=== PATIENT | female | born 1995 | race Caucasian/White ===

== ENCOUNTER 2020-03-29 15:51 | Outpatient (REF) | payer OTHER, SELFPAY ==
[2020-03-29 16:33] LABS: MANUAL DIFF FLAG NO
[2020-03-29 16:49] LABS: Basophils Percent Auto 0.5 % (0-2); Eosinophils Absolute Auto 0.1 X10*3/uL (0.0-0.4); Eosinophils Percent Auto 2.2 % (0-4); Hematocrit 38.1 % (37-47); Hemoglobin 12.9 g/dl (12.0-16.0); Imm Gran Abs Auto 0.01 X10*3/uL (0.00-0.03); Imm Gran Pct Auto 0.2 % (0.0-0.4); Lymphocytes Absolute Auto 2.3 X10*3/uL (1.2-4.9); Lymphocytes Percent Auto 35.5 % (20-40); Mean Corpuscular HGB Conc 33.9 g/dl (31.0-35.0); Mean Corpuscular Hemoglobin 31.9 pg (27.0-33.0); Mean Corpuscular Volume 94.1 fL (80-98); Mean Platelet Volume 9.1 fL (9.4-12.3); Monocytes Absolute Auto 0.8 X10*3/uL (0.1-1.2); Monocytes Percent Auto 12.7 % (2-11); Neutrophils Absolute Auto 3.2 X10*3/uL (2.0-8.3); Neutrophils Percent Auto 48.9 % (45-73); Platelet Count 245 X10*3/uL (160-400); Red Blood Count 4.05 X10*6/uL (4.20-5.50); Red Cell Distribution Width 12.3 % (11.0-16.0); White Blood Count 6.5 X10*3/uL (4.8-10.8)
[2020-03-29 17:05] LABS: Anion Gap 12 (12-20); Blood Urea Nitrogen 10 mg/dL (9-16); Calcium 8.7 mg/dL (8.4-10.2); Carbon Dioxide 25 mmol/L (22-29); Chloride 103 mmol/L (96-108); Estimated Glomerular Filt Rate > 60; Glucose Random 75 mg/dL (60-115); Sodium 136 mmol/L (135-145)
[2020-03-29 17:28] LABS: Ferritin 32 ng/mL (10-122)
[2020-03-30 21:21] LABS: Follicle Stimulating Hormone 5.2 mIU/mL; Prolactin 16.5 ng/mL
[2020-04-01 21:32] LABS: Vitamin B12 255 pg/mL (200-900)
[2020-04-03 00:16] LABS: DHEA, Unconjugated 852 ng/dL
[2020-04-04 10:02] LABS: Testosterone, Free 2.3 pg/mL (0.1-6.4); Testosterone, Total 53 ng/dL (2-45)
== END 2020-03-29 15:52 | disposition home or self-care (01) ==
LOC: HO.LAB 15:51
PROVIDERS: PCP Internal Medicine; Visit Provider Advanced Practice Midwife
DX: L68.0 Hirsutism (principal)
CPT/HCPCS: 36415; 80048; 82607; 82626; 82728; 83001; 83498; 84146; 84402; 84403; 85025

== ENCOUNTER → 2020-04-09 11:36 | Outpatient (BNVA) | payer OTHER, SELFPAY | PROVIDERS: PCP Internal Medicine; Visit Provider Advanced Practice Midwife | DX: Z76.89 Persons encountering health services in other specified circumstances (principal) ==

== ENCOUNTER 2020-05-07 11:28 | Outpatient (REF) | payer OTHER, SELFPAY | END 2020-05-07 11:29 | disposition home or self-care (01) | LOC: HO.LAB 11:28 | PROVIDERS: Visit Provider Internal Medicine | DX: Z20.828 Contact with and (suspected) exposure to other viral communicable diseases (principal) | CPT/HCPCS: C9803; U0003 ==

== ENCOUNTER 2020-05-14 13:08 | Outpatient (REF) | payer OTHER, SELFPAY | END 2020-05-14 13:09 | disposition home or self-care (01) | LOC: HO.LAB 13:08 | PROVIDERS: PCP Internal Medicine; Visit Provider Internal Medicine | DX: Z20.828 Contact with and (suspected) exposure to other viral communicable diseases (principal) | CPT/HCPCS: C9803; U0003 ==

== ENCOUNTER → 2020-09-17 15:31 | Outpatient (BNVA) | payer OTHER, SELFPAY | PROVIDERS: Visit Provider Advanced Practice Midwife ==

== ENCOUNTER 2021-05-23 12:57 | Outpatient (REF) | payer SELFPAY | END 2021-05-23 12:58 | disposition home or self-care (01) | LOC: HO.LAB 12:57 | PROVIDERS: PCP Internal Medicine; Visit Provider Advanced Practice Midwife | DX: Z30.41 Encounter for surveillance of contraceptive pills (principal); N90.89 Other specified noninflammatory disorders of vulva and perineum | CPT/HCPCS: 88142 ==

== ENCOUNTER 2023-06-01 15:26 | Outpatient (AMB) | payer OTHER, SELFPAY ==
[2023-06-01 15:28] VITALS: BP 126/78; BMI 31.9
--- NOTE | 2023-06-01 15:28 | A.OFFVIS_ITS ---
Intake Vital Signs 06/01/23 15:28 Height 5 ft 1 in Weight 169 lb BMI 31.9 BP 126/78 Intake Visit Reasons: Anual Intake Note: hasn't had her menses since stopping controla year ago and recently got her period Pharmacy Coordinator Required: No Information Interpreted: non-clinical & clinical Airframe And Power Plant Mechanic: Airframe And Power Plant Mechanic Present (Manjulayn) Allergies No Known Allergies Allergy (Verified 06/01/23 15:33) Is last menstrual period known: Yes Last menstrual period: 04/29/23 Post menopausal: No HPI HPI Comments History of Present Illness Details She is a premenopausal woman presenting for annual examination. Doing well with concern: She stop taking the a pre because her health insurance did not cover it. She works at [employer]. While off the pill she has only had 2 cycles this year and one most recently. History of PCOS. She tries to eat healthy and stays active with exercise. Currently is not sexually active. She denies vaginal itching and irritation. STI screening offered; she declines a needs as she has not been intimate Denies family history of breast, ovarian or colon cancer. Last pap smear 2020, negative. She denies any contraindications to control such as: migraines with aura, history of DVT or pulmonary emboli, high blood pressure, liver disease, thrombolic disorders, Lupus, +ANY, breast cancer, or smoking. 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 Sexual orientation: Straight/Heterosexual Female Reproductive History Menstrual Age of Menarche: 14 Duration of menses: <3 days Date of last menstrual period: 04/29/23 control method: none Total pregnancies: 0 Date of last pap smear: 05/26/21 (negative) History of abnormal pap smear: No Review of Systems Const All systems reviewed & are unremarkable except as noted in HPI and below Reports as per HPI Eyes Reports no additional complaints ENT Reports no additional complaints Card Reports no additional complaints Resp Reports no additional complaints GI Reports as per HPI and Reports no additional complaints Reports as per HPI Musc Reports no additional complaints Skin/Breast Reports as per HPI Neuro Reports no additional complaints Psych Reports no additional complaints Endo Reports no additional complaints Steven/Lymph Reports no additional complaints Aller/Immun Reports no additional complaints Physical Exam Vital Signs: Last Vital Signs BP 126/78 06/01/23 15:28 BMI result Body Mass Index 31.9 Const General: cooperative, healthy appearing, no acute distress, well developed and alert Orientation/consciousness: patient oriented x3 HEENT Head: Yes normal to inspection Eyes General: appearance normal, both eyes and all related structures Neck Neck: Yes normal visual inspection Thyroid: Thyroid normal Chest Chest palpation & inspection: normal inspection of the chest and other (no puckering, dimpling, peau de orange, retraction, discharge, masses) Breast/axilla inspection: normal inspection of the breasts Breast/axilla palpation: normal palpation of the breasts Resp Effort & Inspection: normal respiratory effort GI Inspection: Yes normal to inspection Palpation (GI): Soft to palpation Rectal Exam - Female: deferred General: Yes bladder normal to palpation External Female Exam: normal external appearance and normal appearance of the urethra Speculum Exam - Vagina: normal appearance of the vagina, normal palpation and normal vaginal discharge Speculum Exam - Cervix: normal appearance of the cervix and normal palpation Bimanual exam- vagina & uterus: normal bimanual exam, normal palpation, uterine size normal, bladder normal to palpation, normal palpation and non-tender Bimanual Exam- Adnexa, other: no masses Skin General skin exam: no rashes or lesions noted Rashes: no rashes Neuro General: patient oriented x3 Cognition (Neuro): normal cognition Extrem General: Yes normal to inspection Psych Attitude: cooperative Thought process: Normal thought process present Assessment & Plan Assessment & Plan (1) Encounter for well woman exam with routine gynecological exam: Code(s): Z01.419 - Encounter for gynecological examination (general) (routine) without abnormal findings (2) PCOS (polycystic ovarian syndrome): Code(s): E28.2 - Polycystic ovarian syndrome Plan Discussed: Current recommendations for pap smears per ASCCP guidelines. Breast awareness and periodic breast exams. Maintain a healthy lifestyle including a well balanced diet and routine exercise. Discussed PCOS. An importance to cycle at least every other month in the prevention of long-term concerns with hyperplasia atypia, pre malignancy, uterine cancer. Advised to discuss with her health insurance plan as to what is covered in get me a list so we can start her back on OCP use or intermittent progesterone if she desires. Informed it is not a protection for control once she becomes sexually active. control hormone use warnings: go to ER if and loss of vision, blindness, severe headache, chest pain or difficulty breathing, severe abdominal pain, or any pain or swelling in an extremity. Use condoms for STI and prevention. All of her questions and concerns were addressed to the best of my ability. RTO in one year for annual pattern chain builder examination. Coding Level of Care Code Est Pt Prev Care 18-39y(43479) Diagnoses Encounter for well woman exam with routine gynecological exam Z01.419 PCOS (polycystic ovarian syndrome) E28.2
== END 2023-06-01 16:33 ==
LOC: HO.HWS 15:26
PROVIDERS: PCP Nurse Practitioner; Visit Provider Advanced Practice Midwife
DX: Z01.419 Encounter for gynecological examination (general) (routine) without abnormal findings (principal); E28.2 Polycystic ovarian syndrome
CPT/HCPCS: 99395

== ENCOUNTER → 2023-06-01 15:26 | Outpatient (BNVA) | payer OTHER, SELFPAY | PROVIDERS: PCP Nurse Practitioner; Visit Provider Advanced Practice Midwife ==

== ENCOUNTER 2025-05-02 12:59 | Outpatient (AMB) | payer BC, SELFPAY ==
--- NOTE | 2025-05-02 13:02 | A.OFFVIS_ITS ---
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 Intake Note: here for mat packer annual no concerns Residential Youth Counselor Required: No Information Interpreted: non-clinical & clinical Dish Technician: Dish Technician Present (Clarisa) Accompanied by: Self / Same As Patient Allergies No Known Allergies Allergy (Verified 05/02/25 13:05) Medication List - Last Reconciled 05/02/25 by Felecia Maher LPN fluoxetine 40 mg PO DAILY lorazepam 0.5 mg PO DAILY PRN topiramate 25 mg PO DAILY Is last menstrual period known: Yes Last menstrual period: 04/30/25 Do you need a note to return to daycare/school/sports/work: No HPI Comments Details: Patient is a premenopausal woman presenting for annual examination. Loan Coordinator concerns: None. History of PCOS. Menses [id number] x4-5d. Currently is not sexually active. She denies vaginal itching or irritation. STI screening offered; she declined. She tries to eat healthy and stays active with exercise. Denies family history of breast, ovarian or colon cancer. Last pap smear 2020, negative. 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 Sexual orientation: Straight/Heterosexual Female Reproductive History Menstrual Age of Menarche: 14 Date of last menstrual period: 04/30/25 control method: condoms Total pregnancies: 0 Number of Living Children: 0 Date of last pap smear: 05/23/21 History of abnormal pap smear: No Review of Systems Const All systems reviewed & are unremarkable except as noted in HPI and below Reports as per HPI Eyes Reports no additional complaints ENT Reports no additional complaints Card Reports no additional complaints Resp Reports no additional complaints GI Reports as per HPI and Reports no additional complaints Reports as per HPI Musc Reports no additional complaints Skin/Breast Reports as per HPI Neuro Reports no additional complaints Psych Reports no additional complaints Endo Reports no additional complaints Steven/Lymph Reports no additional complaints Aller/Immun Reports no additional complaints Physical Exam Vital Signs: Last Vital Signs BP 100/66 05/02/25 13:10 BMI result Body Mass Index 33.1 Const General: cooperative, healthy appearing, no acute distress, well developed and alert Orientation/consciousness: patient oriented x3 HEENT Head: Yes normal to inspection Eyes General: appearance normal, both eyes and all related structures Neck Neck: Yes normal visual inspection Thyroid: Thyroid normal Chest Chest palpation & inspection: normal inspection of the chest and other (no puckering, dimpling, peau de orange, retraction, discharge, masses) Breast/axilla inspection: normal inspection of the breasts Breast/axilla palpation: normal palpation of the breasts Resp Effort & Inspection: normal respiratory effort GI Inspection: Yes normal to inspection Palpation (GI): Soft to palpation Rectal Exam - Female: deferred General: Yes bladder normal to palpation External Female Exam: normal external appearance and normal appearance of the urethra Speculum Exam - Vagina: normal appearance of the vagina, normal palpation and n ormal vaginal discharge Speculum Exam - Cervix: normal appearance of the cervix and normal palpation Bimanual exam- vagina & uterus: normal bimanual exam, normal palpation, uterine size normal, bladder normal to palpation, normal palpation and non-tender Bimanual Exam- Adnexa, other: no masses Skin General skin exam: no rashes or lesions noted Rashes: no rashes Neuro General: patient oriented x3 Cognition (Neuro): normal cognition Extrem General: Yes normal to inspection Psych Attitude: cooperative Thought process: Normal thought process present Assessment & Plan Assessment & Plan (1) Encounter for well woman exam with routine gynecological exam: Code(s): Z01.419 - Encounter for gynecological examination (general) (routine) without abnormal findings Category: Medical Plan Discussed: Current recommendations for pap smears per ASCCP guidelines. Pap obtained today. Breast awareness and periodic breast exams. Reviewed cycle pattern, advised to notify the office if cycles space out any further than 2-1/2-3 months. We will need to consider using some cyclic medication unless needs contraception for prevention. Maintain a healthy lifestyle including a well balanced diet and routine exercise. Use condoms for STI and prevention. Patient verbalizes understanding and agrees to the plan of care. She was given opportunity to ask questions and all questions were answered to the best of my ability. RTO in one year for annual mat packer examination. This note is constructed using voice recognition software. While every effort has been made to ensure accuracy, welfare interviewer errors may have been included. Orders: Orders Pap Smear Today Z01.419 - Encounter for gynecological examination (general) (routine) without abnormal findings Coding Level of Care Code Est Pt Prev Care 18-39y(15910) Diagnoses Encounter for well woman exam with routine gynecological exam Z01.419
[2025-05-02 13:10] VITALS: BP 100/66; BMI 33.1
--- OUTSIDE RECORDS SUMMARY | 2025-05-02 15:39 | XMS_ITS | Clinical Summary ---
Author Organization [facility] Address [address] [place] [id number] Care Team Providers Care Manager Heart Failure Name Role Phone Pcp, No Primary Care Provider Unavailabl e Social History Tobacco Use Types Packs/Day Years Used Date Smoking Tobacco: Never Assessed Comments Unknown Sex and Gender Information Value Date Recorded Sex Assigned at Female 08/04/2023 12:42 PM EST Legal Sex Female 4:40 PM EST Gender Identity Female 08/04/2023 12:42 PM EST Sexual Orientation Not on file Plan of Treatment Health Maintenance Due Date Last Done Comments Hepatitis C Virus Screening 1994 HIV Screening 12/09/2007 DTaP/Tdap/Td Vaccines (1 - Tdap) 2013 Hepatitis B Vaccines (1 of 3 - 19+ 3-dose series) 2013 Pap Smear (Ages 21-65) 12/09/2015 Influenza Vaccine 01/19/2025 03/21/2022, 04/04/2021, 03/28/2019 COVID-19 Vaccine ( - 2024-2 6 season) 2025 04/04/2021, 07/02/2020, 06/11/2020 HPV Vaccines (No Doses Required) Completed Pneumococcal Vaccine: Pediatric (0-5 Years) and At-Risk Patients (6 to 49 Years) Aged Out No longer eligible b ased on patient's age to complete this topic Insurance [employer] HMO/POS [facility] - EMPLOYEE PLAN POWERED BY [employer] Care Teams Manager Heart Failure Relationship Specialty Start Date End Date Pcp, No PCP - General General Medicine 07/30/23
--- OUTSIDE RECORDS SUMMARY | 2025-05-02 15:39 | XMS_ITS | Clinical Summary ---
Author Organization [facility] Address [address] [place] [address] Care Team Providers Care Enamel Applier Name Role Phone None, Provider LAWN MOWER OPERATOR Primary Care Provider Unavaila ble Allergies No known active allergies Medications albuterol 90 mcg/actuation inhaler Inhale 1-2 Puffs as directed every 4 hours as needed for Wheezing. 1 Inhaler 05/11/2017 Active benzonatate (TESSALON) 100 mg capsule Take 1 Cap by mouth 3 times daily as needed for Cough. 30 Cap 05/11/2017 Active Social History Tobacco Use Types Packs/Day Years Used Date Smoking Tobacco: Never Smokeless Tobacco: Never Alcohol Use Standard Drinks/Week Comments No 0 (1 standard drink = 0.6 oz pur e alcohol) Interpersonal Safety Answer Date Record ed Physically Hurt Never 01/22/2020 Verbally Threaten Not on file 01/22/2020 Comments Unknown Sex and Gender Information Value Date Recorded Sex Assigned at Not on file Legal Sex Female 17:15 EST Gender Identity Not on file Sexual Orientation Not on file Last Filed Vital Signs Vital Sign Reading Time Taken Comments Blood Pressure 138/86 05/11/2017 0802 EST Pulse 79 05/11/2017 0802 EST Temperature 36.7 C (98 F) 05/11/2017 0808 EST Respiratory Rate 16 05/11/2017 0802 EST Oxygen Saturation 99% 05/11/2017 0802 EST Inhaled Oxygen Concentration - - Weight - - Height - - Body Mass Index - - Plan of Treatment Health Maintenance Due Date Last Done Comments Hepatitis C Screen 1994 Hepatitis B Vaccine (1 of 3 - 19+ 3-dose series) 12/08 COVID-19 Vaccine (2023- season) 2024 Care Teams Enamel Applier Relationship Specialty Start Date End Date None, Provider, LAWN MOWER OPERATOR PCP - General 04/02/17
--- OUTSIDE RECORDS SUMMARY | 2025-05-02 15:40 | XMS_ITS | Data Portability ---
Author Organization [facility], Main Office Address [address] [place] [address] Care Team Providers Care Seasonal Package Handler Name Role Phone PATRICIA BATRES Child Nurse NATALIA WILKERSON Referring Provider [phone] DEBORA ALEJANDRE Primary Care Provider Assessment Encounter Date Assessment Date Assessment LastModified by Organization Details LastModified Time 12/27/2023 12/27/2023 This service was provided using telemedicine. Patient consented to video & audio visit Patient was located in the [facility]. Provider was located in the office. No other persons participated in the telemedicine visit except for the patient unless otherwise indicated here. Total time of visit was 10 minutes. Not available 12/27/2023 11:00:43 02/01/2024 02/01/2024 This service was provided using telemedicine. Patient consented to video & audio visit Patient was located in the [facility]. Provider was located in the office. No other persons participated in the telemedicine visit except for the patient unless otherwise indicated here. Total time of visit was 10 minutes. Not available 02/01/2024 14:39:45 Plan of Treatment Reminders Order Date Submit Date Provider Last Modified By Organization Details Last Modified Time Details Appointments None recorded. Lab lipid panel, serum 2024 025 [facility], [address] [place], [address], 22:05:39 BMP, serum or plasma 2024 025 [facility], [address], [place], [address], 5 22:05:38 CBC w/ auto diff 2024 025 [facility], [address], [place], [address], 5 22:05:38 TSH, ultra-sens itive, serum 2024 025 [facility], [address], [place], [address], 5 22:05:40 vitamin D, 25-hydroxy , total, serum 2024 025 [facility], [address] [place], [address], 5 22:05:39 vitamin B12, serum 2024 025 [facility], [address] [place], [address], 5 22:05:41 lipid panel, serum 2023 024 [email or web address], [address], [place], [address], 4 10:57:21 BMP, serum or plasma 2023 024 [facility], [address], [place], [address], 4 09:57:21 CBC w/ auto diff 2023 024 [facility], [address], [place], [address], 4 09:57:22 TSH, ultra-sens itive, serum 2023 024 [email or web address], [address], [place], [address], 4 10:57:21 vitamin D, 25-hydroxy , total, serum 2023 024 [facility] (Centralized Electronic Ordering - All Locations), Patient Can Go To The Location Of Their Choice, [address] 4 09:57:22 HbA1c (hemoglobi n A1c), blood 2023 024 [facility] (Centralized Electronic Ordering - All Locations), Patient Can Go To The Location Of Their Choice, [address] 4 09:57:23 vitamin B12, serum 2023 024 [facility] (Centralized Electronic Ordering - All Locations), Patient Can Go To The Location Of Their Choice, [address] 4 09:57:22 ferritin, serum or plasma 2022 023 [facility], [address], [address], [place], [address], 3 04:56:16 iron + total iron-dontrell ng capacity (TIBC), serum 2022 023 [facility], [address], [address], [place], [address], 3 16:50:34 CBC w/ auto diff 2022 023 [facility], [address], [address], [place], [address], 3 16:11:53 vitamin B12 + folate, serum or blood 2022 023 [facility], [address], [address], [place], [address], 3 16:50:34 vitamin D, 25-hydroxy , total, serum 2022 023 [email or web address], [address], [address], [place], [address], 3 04:39:56 HbA1c (hemoglobi n A1c), blood 2022 023 [facility], [address], [address], [place], [address], 3 17:00:38 TSH + free T4, serum 2022 023 [facility], [address], [address], [place], [address], 3 17:00:38 Referral None recorded. Procedures None recorded. Surgeries None recorded. Imaging None recorded. Medication Orders Ubrelvy 50 mg tablet 2023 025 [facility]/Pharmacy #[id number], [address] [place] [address], [address], 5 15:06:19 sumatripta n 25 mg tablet 2023 024 [facility]armacy #0969, [address] [place], [address], 4 14:04:39 topiramate 50 mg tablet [email or web address]/Pharmacy #0969, [address] [place], [address], 4 16:10:21 topiramate 25 mg tablet [email or web address]/Pharmacy #0969, [address] [place], [address], 4 16:11:04 Patient TargetsNo targets recorded. Patient Instructions Encounter Date Encounter Id Patient Instructions Last Modified By Organization Details Last Modified Time 11/25/2023 [id number] learning about anxiety disorders Not available 11/25/2023 09:57:10 Well Visit, Ages 18 to 65: Care Instructions Not available 11/25/2023 09:57:10 learning about mood disorders Not available 11/25/2023 09:57:10 01/30/2025 [id number] learning about anxiety disorders Not available 01/30/2025 15:21:22 learning about mood disorders Not available 01/30/2025 15:21:22 Reason for Referral None Reported. Results Created Date Observation Date Name Description Value Unit Range Abnormal Flag Note LastModifiedBy Organization Detail LastModifiedTime 06/30/19 23 06/30/2022 CBC WITH AUTO DIFF comments [facility], [facility] [address] [facility] [place] [address] Medic al Direc tor - Allis on Sera benítez MD Not Available [facility] [address] [place], [address], 06/30/2022 16:11:53 06/30/1906/30/2022 CBC WITH AUTO DIFF WBC 7.1 x10-3 /uL 4.8-10 .8 Not Available [facility] [address] [place], [address], 06/30/2022 16:11:53 06/30/19 23 06/30/2022 CBC WITH AUTO DIFF RBC 4.4 x10-6 /uL 3.8-4. 8 Not Available [facility] [address] [place], [address], 06/30/2022 16:11:53 06/30/19 23 06/30/2022 CBC WITH AUTO DIFF hemoglobin 13.7 g/dL 11.5-1 6.0 Not Available [facility] [address] [place], [address], 06/30/2022 16:11:53 06/30/19 23 06/30/2022 CBC WITH AUTO DIFF hematocrit 40.8 % 35-47 Not Available [facility] [address] [place], [address], 06/30/2022 16:11:53 06/30/19 23 06/30/2022 CBC WITH AUTO DIFF MCV 92.5 fL 79-98 Not Available [facility] [address] [place], [address], 06/30/2022 16:11:53 06/30/19 23 06/30/2022 CBC WITH AUTO DIFF MCH 31.1 pg 27-32 Not Available [facility] [address] [place], [address], 06/30/2022 16:11:53 06/30/19 23 06/30/2022 CBC WITH AUTO DIFF MCHC 33.6 g/dL 32-37 Not Available [facility] [address] [place], [address], 06/30/2022 16:11:53 06/30/19 23 06/30/2022 CBC WITH AUTO DIFF RDW 12.6 % 11-15 Not Available [facility] [address] [place], [address], 06/30/2022 16:11:53 06/30/19 23 06/30/2022 CBC WITH AUTO DIFF plt count 274 x10-3 /uL 130-40 0 Not Available [facility] [address] [place], [address], 06/30/2022 16:11:53 06/30/19 23 06/30/2022 CBC WITH AUTO DIFF mean platelet volume 9.2 fL 7-11 Not Available [facility] [address] [place], [address], 06/30/2022 16:11:53 06/30/19 23 06/30/2022 CBC WITH AUTO DIFF NRBC % auto diff 0.0 % <1 Not Available [facility] [address] [place], [address], 06/30/2022 16:11:53 06/30/19 23 06/30/2022 CBC WITH AUTO DIFF neut % 54.7 % Not Available [facility] [address] [place], [address], 06/30/2022 16:11:53 06/30/19 23 06/30/2022 CBC WITH AUTO DIFF lymph % 33.1 % Not Available [facility] [address] [place], [address], 06/30/2022 16:11:53 06/30/19 23 06/30/2022 CBC WITH AUTO DIFF mono % 9.3 % Not Available [facility] [address] [place], [address], 06/30/2022 16:11:53 06/30/19 23 06/30/2022 CBC WITH AUTO DIFF eos % 2.0 % Not Available [facility] [address] [place], [address], 06/30/2022 16:11:53 06/30/19 23 06/30/2022 CBC WITH AUTO DIFF baso % 0.6 % Not Available [facility] [address] [place], [address], 06/30/2022 16:11:53 06/30/19 23 06/30/2022 CBC WITH AUTO DIFF immature granulocytes % 0.3 % Not Available [facility] [address] [place], [address], 06/30/2022 16:11:53 06/30/19 23 06/30/2022 CBC WITH AUTO DIFF NRBC # auto diff 0.00 x10-3 /uL <0.1 Not Available [facility] [address] [place], [address], 06/30/2022 16:11:53 06/30/19 23 06/30/2022 CBC WITH AUTO DIFF absolute neut 3.90 x10-3 /uL 1.5-7. 0 Not Available [facility] [address] [place], [address], 06/30/2022 16:11:53 06/30/19 23 06/30/2022 CBC WITH AUTO DIFF lymph # 2.35 x10-3 /uL 1-5.0 Not Available [facility] [address] [place], [address], 06/30/2022 16:11:53 06/30/19 23 06/30/2022 CBC WITH AUTO DIFF mono # 0.66 x10-3 /uL 0.2-1. 0 Not Available [facility] [address] [place], [address], 06/30/2022 16:11:53 06/30/19 23 06/30/2022 CBC WITH AUTO DIFF eos # 0.14 x10-3 /uL 0-0.5 Not Available [facility] [address] [place], [address], 06/30/2022 16:11:53 06/30/19 23 06/30/2022 CBC WITH AUTO DIFF baso # 0.04 x10-3 /uL 0-0.2 Not Available [facility] [address] [place], [address], 06/30/2022 16:11:53 06/30/19 23 06/30/2022 CBC WITH AUTO DIFF immature granulocytes # 0.02 x10-3 /uL 0-0.03 Not Available [facility] [address] [place] [address], [address], 06/30/2022 16:11:53 06/30/19 23 06/30/2022 GLYCO HEMOG LOBIN PROFI LE comments [facility] monique bennett, [facility] [address] [place] [address] Medic al Dire tor - Allis on Sera benítez MD Not Available [facility] [address] [place] [address], [address], 06/30/2022 20:55:54 06/30/19 23 06/30/2022 GLYCO HEMOG LOBIN PROFI LE glycated hemoglobin A1C 5.3 % <6.5 Not Available [facility] [address] [place], [address], 06/30/2022 20:55:54 06/30/19 23 06/30/2022 GLYCO HEMOG LOBIN PROFI LE estimated average glucose 105 mg/dL Not Available [facility] [address] [place], [address], 06/30/2022 20:55:54 06/30/19 23 06/30/2022 TOTAL IRON DONTRELL NG CAPAC ITY comments [facility], [facility] [place] [facility] [address] [place] [address] Medic al Direc tor - Allis on Sera benítez MD Not Available [facility] [address] [place] [address], [address], 07/01/2022 04:32:22 06/30/19 23 06/30/2022 TOTAL IRON DONTRELL NG CAPAC ITY total iron binding capacity 422 ug/dL 250-45 0 Not Available [facility] [address] [place] [address], [address], 07/01/2022 04:32:22 06/30/19 23 06/30/2022 TOTAL IRON DONTRELL NG CAPAC ITY iron (fe) 85 ug/dL 40-150 Not Available [facility] [address] [place] [address], [address], 07/01/2022 04:32:22 06/30/19 23 06/30/2022 TOTAL IRON DONTRELL NG CAPAC ITY % fe saturation 20 % 15-50 Not Available [facility] [address] [place] [address], [address], 07/01/2022 04:32:22 06/30/19 23 06/30/2022 VITAM IN D, 25-HY DROXY comments [facility] erin padgett [facility] of [facility] [address] [place] [address] Medic al Direc tor - Allis on Sera benítez MD Not Available [facility] [address] [place] [address], [address], 07/01/2022 04:39:56 06/30/19 23 06/30/2022 VITAM IN D, 25-HY DROXY vitamin D, 25-hydroxy 31 NG/mL 30-80 Not Available [facility] [address] [place] [address], [address], 07/01/2022 04:39:56 06/30/19 23 06/30/2022 FREE T4 comments [facility] erin padgett [facility] of [facility] [address] [place] [address] Medic al Direc tor - Allis on Sera benítez MD Not Available [facility] [address] [place] [address], [address], 07/01/2022 04:39:58 06/30/19 23 06/30/2022 FREE T4 free T4 1.02 NG/dL 0.70-1 .80 Not Available [facility] [address] [place] [address], [address], 07/01/2022 04:39:58 06/30/19 23 06/30/2022 TSH comments [facility] atorrobby bennett, a [facility] [address] [place] [address] Medic al Dire tor - Allis on Sera benítez MD Not Available [facility] [address] [place] [address], [address], 07/01/2022 04:39:59 06/30/19 23 06/30/2022 TSH TSH 1.25 uIU/m L 0.40-4 .00 Not Available [facility] [address] [place] [address], [address], 07/01/2022 04:39:59 06/30/19 23 06/30/2022 FOLAT E comments [facility] mon[facility], a [facility] Of [address] [place] [address] Medic al Direc tor - Allis on Sera benítez MD Not Available [facility] [address] [place] [address], [address], 07/01/2022 04:56:14 06/30/19 23 06/30/2022 FOLAT E folate 12.0 NG/mL 2.8-17 .0 Not Available [facility] [address] [place] [address], [address], 07/01/2022 04:56:14 06/30/19 23 06/30/2022 VITAM IN B12 comments [facility] monique bennett, a [facility] [address] [facility] [place] [address] Medic al Direc tor - Allis on Sera benítez MD Not Available [facility] [address] [place], [address], 07/01/2022 04:56:15 06/30/19 23 06/30/2022 VITAM IN B12 vitamin B12 627 pg/mL 250-90 0 Not Available [facility] [address] [place], [address], 07/01/2022 04:56:15 06/30/19 23 06/30/2022 MASSIEL TIN comments [facility] rein padgett [facility] [address] [facility]. [place], [place] [address] Medic al Direc tor - Allis on Sera benítez MD Not Available [facility] [address] [place] [address], [address], 07/01/2022 04:56:16 06/30/19 23 06/30/2022 MASSIEL TIN ferritin 15 NG/mL 8-252 Not Available [facility] [address] [place], [address], 07/01/2022 04:56:16 02/08/20 25 02/07/2025 CBC WITH DIFFE RENTI AL/PL ATELE T WBC 9.2 x10e3 /uL 3.4-10 .8 normal Not Available [facility] ([facility]) [address] [place], [address], 02/09/2025 22:05:38 02/08/20 25 02/07/2025 CBC WITH DIFFE RENTI AL/PL ATELE T RBC 4.24 x10e6 /uL 3.77-5 .28 normal Not Available [facility] ([facility]) [address] [place], [address], 02/09/2025 22:05:38 02/08/20 25 02/07/2025 CBC WITH DIFFE RENTI AL/PL ATELE T hemoglobin 13.7 g/dL 11.1-1 5.9 normal Not Available [facility] ([facility]) [address] [place], [address], 02/09/2025 22:05:38 02/08/20 25 02/07/2025 CBC WITH DIFFE RENTI AL/PL ATELE T hematocrit 40.8 % 34.0-4 6.6 normal Not Available [facility] ([facility]) [address] [place], [address], 02/09/2025 22:05:38 02/08/20 25 02/07/2025 CBC WITH DIFFE RENTI AL/PL ATELE T MCV 96 fL 79-97 normal Not Available [facility] ([facility]) [address] [place], [address], 02/09/2025 22:05:38 02/08/20 25 02/07/2025 CBC WITH DIFFE RENTI AL/PL ATELE T MCH 32.3 pg 26.6-3 3.0 normal Not Available [facility] ([facility]) [address] [place], [address], 02/09/2025 22:05:38 02/08/20 25 02/07/2025 CBC WITH DIFFE RENTI AL/PL ATELE T MCHC 33.6 g/dL 31.5-3 5.7 normal Not Available [facility] ([facility]) [address] [place], [address], 02/09/2025 22:05:38 02/08/20 25 02/07/2025 CBC WITH DIFFE RENTI AL/PL ATELE T RDW 12.9 % 11.7-1 5.4 Not Available [facility] ([facility]) [address] [place], [address], 02/09/2025 22:05:38 02/08/20 25 02/07/2025 CBC WITH DIFFE RENTI AL/PL ATELE T platelets 249 x10e3 /uL 150-45 0 normal Not Available [facility] ([facility]) [address] [facility], [place], [address], 02/09/2025 22:05:38 02/08/20 25 02/07/2025 CBC WITH DIFFE RENTI AL/PL ATELE T neutrophils 62 % not estab. normal Not Available [facility] ([facility]) [address] [facility], [place], [address], 02/09/2025 22:05:38 02/08/20 25 02/07/2025 CBC WITH DIFFE RENTI AL/PL ATELE T lymphs 27 % not estab. normal Not Available [facility] ([facility]) [address] [facility], [place], [address], 02/09/2025 22:05:38 02/08/20 25 02/07/2025 CBC WITH DIFFE RENTI AL/PL ATELE T monocytes 9 % not estab. normal Not Available [facility] ([facility]) [address] [facility], [place], [address], 02/09/2025 22:05:38 02/08/20 25 02/07/2025 CBC WITH DIFFE RENTI AL/PL ATELE T eos 1 % not estab. normal Not Available [facility] ([facility]) [address] [facility], [place], [address], 02/09/2025 22:05:38 02/08/20 25 02/07/2025 CBC WITH DIFFE RENTI AL/PL ATELE T basos 0 % not estab. normal Not Available [facility] ([facility]) [address] [facility], [place], [address], 02/09/2025 22:05:38 02/08/20 25 02/07/2025 CBC WITH DIFFE RENTI AL/PL ATELE T immature cells BACKREST ASSEMBLER Not Available [facility] ([facility]) [address] [place], [address], 02/09/2025 22:05:38 02/08/20 25 02/07/2025 CBC WITH DIFFE RENTI AL/PL ATELE T neutrophils (absolute) 5.7 x10e3 /uL 1.4-7. 0 normal Not Available [facility] ([facility]) [address] [place], [address], 02/09/2025 22:05:38 02/08/20 25 02/07/2025 CBC WITH DIFFE RENTI AL/PL ATELE T lymphs (absolute) 2.5 x10e3 /uL 0.7-3. 1 normal Not Available [facility] ([facility]) [address] [place], [address], 02/09/2025 22:05:38 02/08/20 25 02/07/2025 CBC WITH DIFFE RENTI AL/PL ATELE T monocytes(ab solute) 0.8 x10e3 /uL 0.1-0. 9 normal Not Available [facility] ([facility]) [address] [place], [address], 02/09/2025 22:05:38 02/08/20 25 02/07/2025 CBC WITH DIFFE RENTI AL/PL ATELE T eos (absolute) 0.1 x10e3 /uL 0.0-0. 4 normal Not Available [facility] ([facility]) [address] [place], [address], 02/09/2025 22:05:38 02/08/20 25 02/07/2025 CBC WITH DIFFE RENTI AL/PL ATELE T baso (absolute) 0.0 x10e3 /uL 0.0-0. 2 normal Not Available [facility] ([facility]) [address] [place], [address], 02/09/2025 22:05:38 02/08/20 25 02/07/2025 CBC WITH DIFFE RENTI AL/PL ATELE T immature granulocytes 1 % not estab. Not Available [facility] ([facility]) [address] [facility], [place], [address], 02/09/2025 22:05:38 02/08/20 25 02/07/2025 CBC WITH DIFFE RENTI AL/PL ATELE T immature grans (abs) 0.1 x10e3 /uL 0.0-0. 1 Not Available [facility] ([facility]) [address] [facility], [place], [address], 02/09/2025 22:05:38 02/08/20 25 02/07/2025 CBC WITH DIFFE RENTI AL/PL ATELE T NRBC BACKREST ASSEMBLER Not Available [facility] ([facility]) [address] [facility], [place], [address], 02/09/2025 22:05:38 02/08/20 25 02/07/2025 CBC WITH DIFFE RENTI AL/PL ATELE T hematology comments: BACKREST ASSEMBLER Not Available [facility] ([facility]) [address] [facility], [place], [address], 02/09/2025 22:05:38 02/08/20 25 02/08/2025 BASIC METAB OLIC PANEL (8) glucose 91 mg/dL 70-99 normal Not Available [facility] ([facility]) [address] [place], [address], 02/09/2025 22:05:38 02/08/20 25 02/08/2025 BASIC METAB OLIC PANEL (8) BUN 19 mg/dL 6-20 normal Not Available [facility] ([facility]) [address] [place], [address], 02/09/2025 22:05:38 02/08/20 25 02/08/2025 BASIC METAB OLIC PANEL (8) creatinine 0.69 mg/dL 0.57-1 .00 normal Not Available [facility] ([facility]) [address] [place], [address], 02/09/2025 22:05:38 02/08/20 25 02/08/2025 BASIC METAB OLIC PANEL (8) eGFR 120 mL/mi n/1.7 3 >59 normal Not Available [facility] ([facility]) [address] [place], [address], 02/09/2025 22:05:38 02/08/20 25 02/08/2025 BASIC METAB OLIC PANEL (8) BUN/creatini ne ratio 28 9-23 above high normal Not Available [facility] ([facility]) [address] [place], [address], 02/09/2025 22:05:38 02/08/20 25 02/08/2025 BASIC METAB OLIC PANEL (8) sodium 137 mmol/ L 134-14 4 normal Not Available [facility] ([facility]) [address] [place], [address], 02/09/2025 22:05:38 02/08/20 25 02/08/2025 BASIC METAB OLIC PANEL (8) potassium 4.0 mmol/ L 3.5-5. 2 normal Not Available [facility] ([facility]) [address] [place], [address], 02/09/2025 22:05:38 02/08/20 25 02/08/2025 BASIC METAB OLIC PANEL (8) chloride 104 mmol/ L 96-106 normal Not Available [facility] ([facility]) [address] [place], [address], 02/09/2025 22:05:38 02/08/20 25 02/08/2025 BASIC METAB OLIC PANEL (8) carbon dioxide, total 16 mmol/ L 20-29 below low normal Not Available [facility] ([facility]) [address] [place], [address], 02/09/2025 22:05:38 02/08/20 25 02/08/2025 BASIC METAB OLIC PANEL (8) calcium 9.0 mg/dL 8.7-10 .2 normal Not Available [facility] ([facility]) [address] [place], [address], 02/09/2025 22:05:38 02/08/20 25 02/08/2025 LIPID PANEL cholesterol, total 167 mg/dL 100-19 9 normal Not Available [facility] ([facility]) [address] [place], [address], 02/09/2025 22:05:39 02/08/20 25 02/08/2025 LIPID PANEL triglyceride s 129 mg/dL 0-149 normal Not Available [facility] ([facility]) [address] [place], [address], 02/09/2025 22:05:39 02/08/20 25 02/08/2025 LIPID PANEL HDL cholesterol 46 mg/dL >39 normal Not Available [facility] ([facility]) [address] [place], [address], 02/09/2025 22:05:39 02/08/20 25 02/08/2025 LIPID PANEL VLDL cholesterol ashley 23 mg/dL 5-40 Not Available [facility] ([facility]) [address] [place], [address], 02/09/2025 22:05:39 02/08/20 25 02/08/2025 LIPID PANEL LDL chol calc ([facility]) 98 mg/dL 0-99 Not Available [facility] ([facility]) [address] [place], [address], 02/09/2025 22:05:39 02/08/20 25 02/08/2025 LIPID PANEL LDL calc comment: BACKREST ASSEMBLER Not Available [facility] ([facility]) [address] [place], [address], 02/09/2025 22:05:39 02/08/20 25 02/08/2025 VITAM IN D, 25-HY DROXY vitamin D, 25-hydroxy 66.2 NG/mL 30.0-1 00.0 Vitam in D defic iency has been defin ed by the Insti tute of Medic ine and an Endoc rine Socie ty pract ice guide line as a level of serum 25-OH vitam in D less than 20 ng/mL (1,2) . The Endoc rine Socie ty went on to furth er defin e vitam in D insuf ficie ncy as a level betwe en 21 and 29 ng/mL (2). 1. IOM (Inst itute of Medic ine). 2010. Dieta ry refer ence stevan es for calci um and D. Kevin sheldon [place]: The [facility] . 2. Celso hart [place], Susan haque [place], Pola off-F errar i ROBLES, et al. Evalu ation , treat ment, and preve ntion of vitam in D defic iency : an Endoc rine Socie ty clini ashley pract ice guide line. JCEM. 2010; 96(7) :1911 -30. Not Available [facility] ([facility]) [address] [place], [address], 02/09/2025 22:05:39 02/08/20 25 02/08/2025 TSH RFX ON ABNOR MAL TO FREE T4 TSH 1.580 uIU/m L 0.450- 4.500 normal Not Available [facility] ([facility]) [address] [place], [address], 02/09/2025 22:05:40 02/08/20 25 02/09/2025 VITAM IN B12 vitamin B12 304 pg/mL 232-12 45 normal Not Available [facility] ([facility]) [address] [place], [address], 02/09/2025 22:05:41 Result Notes None recorded. Problems Name Problem SNOMED Code Status Onset Date Resolution Date Notes Provider Name and Address Organization Details Recorded Time Depressive disorder 55989140 Active 2020 Not Available [facility] 3 02:38:33 Anxiety disorder 556425767 Active 2020 Not Available [facility] 3 02:38:33 Migraine 79036144 Active 2020 Not Available [facility] 3 02:38:33 Polycystic ovary syndrome 086922264 Active 2020 Not Available [facility] 3 02:38:33 Cobalamin deficiency 969171607 Active 2020 Not Available [facility] 3 02:38:33 Vitamin D deficiency 77553738 Active 2020 Not Available [facility] 3 02:38:33 Notes:Some problems listed i n Document: #[id number] could not be added to this patient's chart. Please review this document and add these problems to the patient's chart manually as needed. Problem Notes None recorded. Procedures Surgical History Date Name Laterality Status Provider Name and Address Organization Details Recorded Time 06/01/20 23 Date of Last Pap Smear completed Sofiya Cisneros MA [facility] 01/30/2025 15:08:06 06/21/19 03 Tonsillectomy completed Sofiya Cisneros MA [facility] 05/30/2021 13:11:11 Other completed Sofiya Cisneros MA [facility] 05/30/2021 13:11:11 Imaging Results None recorded. Procedure Notes None recorded. Medical Equipment None Reported. Allergies No known drug allergies Medications Name Sig Start Date Stop Date Status Note LastModified by Organization Details LastModified Time fluoxetine 40 mg capsule TAKE 1 CAPSULE BY MOUTH EVERY DAY active Not Available Not Available No t Available buspirone 5 mg tablet TAKE 1 TABLET BY MOUTH TWICE A DAY 05/05 completed Not Available Not Available Not Available Apri 0.15 mg-0.03 mg tablet TAKE 1 TABLET BY MOUTH EVERY DAY 11/24 completed Not Available Not Available Not Available sumatripta n 25 mg tablet TAKE 1 TABLET BY MOUTH EVERY DAY NEEDED 01/31 completed Not Available Not Available Not Available cyanocobal uriarte (vit B-12) 1,000 mcg tablet TAKE 1 TABLET BY MOUTH EVERY DAY 05/05 completed Not Available Not Available Not Available topiramate 25 mg tablet TAKE 1 TABLET BY MOUTH EVERY DAY FOR 30 DAYS 12/16 completed Not Available Not Available Not Available amitriptyl ine 25 mg tablet TAKE 1 TABLET BY MOUTH EVERY DAY FOR 30 DAYS 06/29 completed Not Available Not Available Not Available lorazepam 0.5 mg tablet TAKE 1 TABLET BY MOUTH EVERY DAY NEEDED active only when flying Not Available Not Available Not Available amitriptyl ine 10 mg tablet TAKE 1 TABLET BY MOUTH EVERY EVENING 11/24 completed Not Available Not Available Not Available fluoxetine 10 mg capsule TAKE 1 CAPSULE BY MOUTH EVERY DAY 05/05 completed Not Available Not Available Not Available fluoxetine 20 mg capsule Take 2 capsules every day by oral route as directed . 03/09 completed Not Available Not Available Not Available topiramate 50 mg tablet TAKE 1 TABLET BY MOUTH EVERY DAY 2024 active Not Available Not Available Not Avai lable Vitamin D3 1000 po qd 11/24 completed Not Available Not Available Not Available cholecalci ferol (vitamin D3) 1,250 mcg (50,000 unit) capsule TAKE 1 CAPSULE EVERY WEEK BY ORAL ROUTE FOR 56 DAYS. 06/29 completed Not Available Not Available Not Available melatonin 10 mg tablet Take 1 tablet every day by oral route as directed . 03/09 completed Not Available Not Available Not Available Vandana (28) 3 mg-0.02 mg tablet TAKE 1 TABLET BY MOUTH EVERY DAY 05/05 completed Not Available Not Available Not Available Vitamin B12 1 po qd 11/24 completed Not Available Not Available Not Available Ubrelvy 50 mg tablet TAKE 1 TABLET BY MOUTH NEEDED FOR HEADACHE FOR 10 DAYS 01/30 completed Not Available Not Available Not Available COVID-19 At-Home Test kit 12/26 completed Not Available Not Available Not Available Vitals Date Recorded Body height Body mass index (BMI) Body weight Oxygen saturation Oxygen saturation in Arterial blood by Pulse oximetry Heart rate Body temperature Systolic And Diastolic Provider Name and Address Organization Details Last Updated DateTime 3 157.48 cm 34.8 kg/m2 63967.2 5 g 98 % 98 % 83 /min 98.3 [degF] 124/79 mm[Hg] Sofiya Cisneros MA [facility] 3 15:49:12 Date Recorded Body height Body mass index (BMI) Body weight Heart rate Oxygen saturation Oxygen saturation in Arterial blood by Pulse oximetry Body temperature Systolic And Diastolic Provider Name and Address Organization Details Last Updated DateTime 4 157.48 cm 31.8 kg/m2 83333.0 7 g 87 /min 98 % 98 % 97.9 [degF] 127/85 mm[Hg] Fawn Fields MA [facility] 4 09:36:06 Date Recorded Body height Provider Name an d Address Organization Details Last Updated DateTime 12/27/2023 157.48 cm Fawn Fields MA [facility] 12/27/2023 10:32:02 Date Recorded Body height Body mass index (BMI) Body weight Oxygen saturation Oxygen saturation in Arterial blood by Pulse oximetry Heart rate Body temperature Systolic And Diastolic Provider Name and Address Organization Details Last Updated DateTime 5 157.48 cm 32.6 kg/m2 37696.5 4 g 99 % 99 % 73 /min 98.4 [degF] 120/74 mm[Hg] Sofiya Cisneros MA [facility] 5 15:05:27 Date Recorded Body height Provider Name an d Address Organization Details Last Updated DateTime 02/01/2024 157.48 cm Sofiya Cisneros MA [facility] 02/01/2024 13:57:48 Social History Question Answer Notes LastModified by Organizat ion Details LastModified Time Tobacco Smoking Status Never Smoker ZULLY Mao [facility] 05/30/2021 13:11:07 Is Blood Transfusion Acceptable In An Emergency? Yes [email or web address] Information not available 05/30/2021 What Is Your Level Of Caffeine Consumption? Moderate [email or web address] Information not available 06/29/2022 How Much Tobacco Do You Chew? None [email or web address] Information not available 05/30/2021 What Type Of Diet Are You Following? [email or web address] Information not available 05/30/2021 Which Illicit Or Recreational Drugs Have You Used? None [email or web address] Information not available 05/30/2021 Do You Take Precautions To Prevent Distracted Driving? Yes [email or web address] Information not available 05/30/2021 How Often Do You Need To Have Someone Help You When You Read Instructions, Pamphlets, Or Other Written Material From Your Doctor Or Pharmacy? Never [email or web address] Information not available 06/29/2022 Have You Served In The ? No [email or web address] Information not available 05/30/2021 How Many Children Do You Have? 0 [email or web address] Information not available 05/30/2021 Do You Use Your Seat Belt Or Car Seat Routinely? Yes [email or web address] Information not available 05/30/2021 Are You Sexually Active? No [email or web address] Information not available 05/30/2021 Do You Have Smoke And Carbon Monoxide Detectors In Your Home? Yes [email or web address] Information not available 05/30/2021 Are You Passively Exposed To Smoke? No [email or web address] Information no t available 05/30/2021 How Much Tobacco Do You Smoke? No [email or web address] Information not available 05/30/2021 Do You Use Sunscreen Routinely? Yes [email or web address] Information not available 05/30/2021 Sex: Unknown Functional Status Question Answer Note LastModified by Organizat ion Details LastModified Time What is your level of alcohol consumption? Occasional [email or web address] Information not available 05/30/2021 Do you or have you ever used smokeless tobacco? Never used smokeless tobacco [email or web address] Information not available 05/30/2021 Are you currently employed? Yes [email or web address] Information not available 05/30/2021 Are you able to walk independently without assistance or assistive devices? YESWOREST Information not available 06/29/2022 Are you able to care for yourself independently? 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 Occasional [email or web address] Information not available 05/30/2021 Mental Status None recorded. Family History Relationship Description Onset Age of this Age Resolved Age Notes LastModified by Organization Details LastModified Time Maternal Aunt Dementia Not available 05/30/2021 13:10:48 Mother Depressive disorder [email or web address] Not available 05/30 13:10:48 Mother Attention deficit hyperactivit y disorder Not available 05/21 13:10:48 Mother Anxiety disorder [email or web address] Not available 05/30 13:10:48 Father Heart disease [email or web address] Not available 05/30 13:10:48 Father Kidney disease [email or web address] Not available 06/29 15:42:43 Maternal Grandfather Alzheimer's disease [email or web address] Not available 05/30 13:10:48 Sister Depressive disorder [email or web address] Not available 05/30 13:10:48 Sister Attention deficit hyperactivit y disorder [email or web address] Not available 02/2023 15:42:43 Sister Anxiety disorder [email or web address] Not available 06/29 15:42:43 Medical History Condition Response Anxiety Disorder Y Vision or Eye Problems Y Anemia Y Constipation Y Headaches/Migraines Y Mental Illness Y Depression Y Chicken Pox Y GI Problems Y Acne Y Gynecological History Statement/Question Response Date of Last Pap Smear 06/01/2023 Obstetrics History GPAL:G 0 P 0 0 0 0 Immunizations Vaccine Type Date Status Note Provider Nam e and Address Organization Details Recorded Time Influenza, split virus, quadrivalent, preservative 9 completed Not Available [facility] 10/01/2022 02:38:33 COVID-19, mRNA, LNP-S, PF, 30 mcg/0.3 mL dose 1 completed Not Available [facility] 10/01/2022 02:38:33 COVID-19, mRNA, LNP-S, PF, 30 mcg/0.3 mL dose 1 completed Not Available [facility] 10/01/2022 02:38:33 Tdap 9 completed Not Available [facility] 10/01/2022 02:38:33 COVID-19, mRNA, LNP-S, PF, 30 mcg/0.3 mL dose 0 completed Not Available [facility] 10/01/2022 02:38:33 Influenza, split virus, quadrivalent, preservative 1 completed Not Available [facility] 10/01/2022 02:38:33 influenza, unspecified formulation 2 completed Not Available [facility] 10/01/2022 02:38:33 Influenza, split virus, trivalent, preservative 3 completed Sofiya Cisneros MA [facility] 02/01/2024 13:57:29 Past Encounters Encounter ID Performer Location Encounter Start Date Encounter Closed Date Diagnosis/Indication Diagnosis SNOMED-CT Code Diagnosis ICD10 Code Diagnosis IMO Codes Diagnosis Note [id number] Ya villa MD Main Office [address] [facility] [address] [facility] [place] [id number] 05/30/2021 13:08:44 05/30/2021 14:20:40 Adult health examination 684224082 Z00.00 Pt is in good general health. Social and family history reviewed. Immunizati ons reviewed, advised annual flu shot. 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 Depressive disorder 3548 9007 F32.A stable on medication , followed by mental health providers Constipation 92970230 K5 9.00 Increase fluid intake to 6-8 glasses a day, increase fresh fruits and vegetables , whole grains. Increase exercise. Can try miralax 1 capuful daily if she would like, then use prn. Call if any abdominal pain, bleeding. Fatigue 23945278 R53.83 Vitamin D deficiency 347 45721 E55.9 Anemia due to unknown mechanism 46108512 D64.9 hx of anemia, will do labs Family his tory of hyperlipidemia 276462761 Z83.49 [id number] Ya villa MD Main Office [address] [facility] [address] [facility] [place] [id number] 03/09/2022 09:43:00 03/09/2022 10:29:00 Migraine 04944327 G43.909 on TCA at 10 mg, will try increase to 25 mg. Will add sumitripta n to take at time of migraine. Try magnesium, keeping hydrated, getting enough sleep. If not improved to call back. Consider another preventive agent if not helping. [id number] Ya villa MD Main Office [address] [facility] [address] [facility] [place] [id number] 06/29/2022 15:32:04 06/29/2022 16:57:52 Adult health examination 105486493 Z00.00 Pt is in good general health. Social and family history reviewed. Immunizati ons reviewed, advised annual flu shot which she has had. 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 Polycystic ovary syndrome 176911625 E28.2 Continue to work on healthy eating, exercise, change med to avoid wt gain. [id number] DEBORA ALEJANDRE MD Main Office [address] [facility] [address] [place] [address] [place] [id number] 11/25/2023 09:30:06 11/25/2023 10:02:59 Adult health examination 688681238 Z00.00 Health Maintenanc e FemaleA) Patient was counseled on healthy diet, exercise and nutrition due to BMI of 31.8 B) ScreeningL ast Mammogram: start at age 50 stop at 74Date: Result: BIRADS ???Next: not yet of age Last Pap smear: start at age 21 to age 65Date: 05/23/2021 esults: no atypical cellsNext: 3 years, 05/2024 Last Colonoscop y: start at age 45-75Date: Result: Next: not yet of age Last DEXA scan:Date: due at 65Result: not yet of age C) Vaccines:I nfluenza: refusedTdA P: 03/21/2019Z tiffanie: due at 89ODF91: due at 63AKBI09: due at 62XIB07:PC V15:COVID: 06/11/2020 , 07/02/2020, 04/04/2021 D) Routine blood work orderedE) Updated patient's history RTC in one year for annual exam or sooner if any acute complaints Anxiety disorder 6182992 06 F41.9 - GILMAR-7 score of 0- pt is currently on fluoxetine 40mg QD -> given by psychiatri st- pt will take lorazepam 0.5mg as needed- counsellin g provided Depressive disorder 1155 9007 F32.A - PHQ-9 score of 0- pt is currently on fluoxetine 40mg QD -> given by psychiatri st- denies SI/HI- counsellin g provided Migraine 16154041 G43.90 9 - feels like frequency has increased -> 2X a week currently> nausea and photophobi a- no aura- for abortive treatment pt is currently taking sumatripta n 25mg -> does not feel that it helps- will take Excedrin instead usually 2-4 capsules daily- for prevention pt is currently taking topiramate , will increase to 50mg- will monitor weight- RTC in 4 weeks Polycystic ovary syndrome 687434453 E28.2 - 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 will continue for another 4 weeks. If no improvemen t will taper off the topiramate and start on propanolol - reintroduc ed back sumatripta n as needed- c/w Excedrin as needed- weight is stable- RTC in 4 weeks [id number] DEBORA ALEJANDRE MD Main Office [address] [facility] [address] [place] [address] 02/01/2024 13:50:47 02/01/2024 15:24:57 Migraine 07992371 G43.909 - improved> pt has migraines with associated nausea and photophobi a- no aura- c/w topiramate 50mg QD as it providing relief- stopped sumatripta n as it caused AE with nausea and vomiting and did not provide relief> will try ubrelvy 50mg as needed instead to help with severe migraines when patient gets them can use as abortive therapy- c/w Excedrin as needed- weight is stable [id number] DEBORA ALEJANDRE MD Main Office [address] [facility] [address] [place] [address] 01/30/2025 14:54:51 01/30/2025 15:23:01 Migraine 92332269 G43.909 - improved> pt has migraines with associated nausea and photophobi a- no aura- c/w topiramate 50mg QD as it providing relief- stopped sumatripta n as it caused AE with nausea and vomiting and did not provide relief> patient was given ubrelvy 50mg QD for abortive treatment however has yet needed to try it- c/w Excedrin as needed- weight is stable Anxiety disorder 6626857 06 F41.9 - GILMAR-7 score of 0- pt is currently on fluoxetine 40mg QD -> given by psychiatri (sees once every 6 months)- pt will take lorazepam 0.5mg as needed (usually when flying)- counselwong rodriguez provided Depressive disorder 8458 9007 F32.A - PHQ-9 score of 0- pt is currently on [facility] 40mg QD [facility] denies SI/HI- counsellin g provided Polycystic ovary syndrome 859046321 E28.2 - 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 Cobalamin deficiency 190 749738 E53.8 - no hx of this- pt is a vegetarian , will check vitamin b12 levels Vitamin D deficiency 347 01406 E55.9 General ex amination of patient 126870434 Z00.00 [id number] Health Maintenanc e FemaleA) Patient was counseled on healthy diet, exercise and nutrition due to BMI of 32.6 B) ScreeningL ast Mammogram: start at age 50 stop at 74Date: Result: BIRADS ???Next: not yet of age Last Pap smear: start at age 21 to age 65Date: 05/23/2021 esults: no atypical cellsNext: 3 years, 05/2024 Last Colonoscop y: start at age 45-75Date: Result: Next: not yet of age Last DEXA scan:Date: due at 65Result: not yet of age C) Vaccines:I nfluenza: refusedTdA P: 03/21/2019Z tiffanie: due at 78YTU59: due at 03PUGG31: due at 67JRD84:PC V15:COVID: 06/11/2020 , 07/02/2020, 04/04/2021 D) Routine blood work orderedE) Updated patient's history RTC in one year for annual exam or sooner if any acute complaints Fatigue 56701389 R53.83 Z00.00 Hyperlipidemia 51452367 E78.5 Z00.00 FASTING Obesity ca used by energy imbalance 999080276 E66.811 E66.09 Z68.32 95493840 - BMI of 32.6- Cut down on (limit) fast foods, sweets, and processed snack foods. - Limit alcohol intake to no more than 1- 2 drinks a day for men. One drink equals 12 oz of beer, 5 oz of wine, or 1 oz of hard liquor. - Keep a weight loss journal and keep track of the food and portions that you eat. - The exercise that you do- 4 times a week or 150 minutes cumulative of moderate exercise recommende d. Health Concerns Section Related Observation LastModified by Organization Detai ls LastModified Time None Recorded Concern Status LastModified by Organization Details LastModified Time None Recorded Advance Directives Directive None Recorded Payers Insurance Date Sequence Insurance Name Policy Number Policy Hugo Covered Member ID Hugo Member ID Guarantor Name 11/24/2023 1 [employer] (POS) [id number] Edita Rocha [id number] Edita Rocha 02/12/2025 1 BRANDON (PPO) [id number] Edita Rocha [id number] Edita Rocha 02/12/2025 1 DORITA COTA (PPO) [id number] Edita Rocha [id number] Edita Rocha 01/30/2025 1 [employer] (EPO) [id number] Edita Rocha [id number] Edita Rocha Notes Date Note Type Note Provider Name and Address Organization Details Recorded Time 06/29/2022 text/html Generic HPI TemplateReported by PatientROS as noted in the HPI physical age 26Migraines controlled with amytriptyline 25 mg but has gained wt, agrees to try another med for prevention. Has PCOS and and wants to avoid wt gain. Use imitrex prn, needs rarely.Feels well other elliott. Belle pascal, [facility] 06/29/2022 23:49:15 11/25/2023 text/html Generic HPI TemplateReported by Patient Edita Byrd is a 27 year old F who presented to the clinic for her annual exam. Patient denies any emergency room visits or hospitalizations during this time. Pt just finished school and is now working. Complaints: migraines Is not using ASA.OTC/Herbal supplements use: none Gynecologic HistoryPatient's last menstrual period was one month agoMenstrual cycle lasts 3-4 days, with/without spotting/clothsMenstru al cycle: irregularSexually active: not currentlyContraception : was on OCP (stopped due to insurance)+ ovarian cystsDenies stds, fibroids, abnormal pap smears Obstetric HistoryGravida: 0Para: 0AB: 0Complications: Drug use: neverEtoh use: once a monthtobacco use: neverspf/derm: Dental: has not been in some time, 2 years overdueEye: every 2 years (pt does not always wear glasses)Diet: vegetarianActivity: two to three times a week DEBORA ALEJANDRE MD [address] [address], [place], [address], [facility] 11/25/2023 10:04:41 12/27/2023 text/html HeadacheReported by PatientHPIFor associated symptoms, patient reportsnausea,vomiting , andphotophobiabut reportstearing/watery eyes,no confusion,no slurred speech,no preceeding aura,no double vision,normal feeling/sensation,no motor paralysis,no dizziness,no sleep disturbances,no nosebleeds,no hoarseness,no sore throat, andno hearing loss. For quality, patient reportsnot the worst headache everandsimilar to previous headaches. For severity, patient reportsmoderate. For duration, patient reportsintermittent. For onset/timing, patient reportsabrupt onset(will last two days). For context, patient reportsnot related to trauma. For aggravating factors, patient reportsloud noise(light sensitivity). For location, (no specific for patient).ROS as noted in the HPI Edita Byrd is a 28 year old F who was seen over for follow-up on her migraines. On 11/25/2023 pt topiramate was increased to 50mg. Pt mentions that during this time she had COVID and had a lingering cough. Pt caused patient not to eat well or sleep well. Cough as now resolved. Pt has not noticed any difference on being on the medication. Continues to have migraines twice a week. Will take Excedrin as needed. Has not noticed any weight loss. DEBORA ALEJANDRE MD [address], [address], [facility] 12/27/2023 11:02:33 02/01/2024 text/html HeadacheReported by PatientHPIFor associated symptoms, patient reportsnausea,vomiting , andphotophobiabut reportstearing/watery eyes,no confusion,no slurred speech,no preceeding aura,no double vision,normal feeling/sensation,no motor paralysis,no dizziness,no sleep disturbances,no nosebleeds,no hoarseness,no sore throat, andno hearing loss. For quality, patient reportsnot the worst headache everandsimilar to previous headaches. For severity, patient reportsmoderate. For duration, patient reportsintermittent. For onset/timing, patient reportsabrupt onset(will last two days). For context, patient reportsnot related to trauma. For aggravating factors, patient reportsloud noise(light sensitivity). For location, (no specific for patient).ROS as noted in the HPI Edita Byrd is a 28 year old F who was seen over for follow-up on her migraines. On 11/25/2023 pt topiramate was increased to 50mg. It did take some time however patient is noticing a difference in her migraines. They are happening less frequently. The intensities of the migraines have also improved. Pt continues to use Excedrin as needed. Has not noticed any weight loss. Pt did try sumatriptan twice and it did not provide relief and caused a nausea and vomiting. DEBORA ALEJANDRE MD [address], [address], [facility] 02/01/2024 15:19:20 01/30/2025 text/html Generic HPI TemplateReported by Patient Edita Byrd is a 29 year old F who presented to the clinic for her annual exam. Patient denies any emergency room visits or hospitalizations during this time. Pt just finished school and is now working. Complaints: none Is not using ASA.OTC/Herbal supplements use: zinc, vitamin D, magnesium Gynecologic HistoryPatient's last menstrual period was about two months agoMenstrual cycle lasts 4 days, without spotting but with clothsMenstrual cycle: irregularSexually active: not currentlyContraception : abstinence+ ovarian cystsDenies stds, fibroids, abnormal pap smears Obstetric HistoryGravida: 0Para: 0AB: 0Complications: Drug use: neverEtoh use: once a monthtobacco use: neverspf/derm: uses Dental: every yearEye: has not been on some time (pt does not always wear glasses)Diet: vegetarianActivity: gym: two to three times a week (cardio and weights) DEBORA ALEJANDRE MD [address], [address], [facility] 01/30/2025 15:25:59 OBGyn Episode No OBEpisode recorded.
--- OUTSIDE RECORDS SUMMARY | 2025-05-02 15:40 | XMS_ITS | Clinical Summary ---
Author Organization [facility] [employer] [facility] Address [address] [place] [address] Care Team Providers Care Front Office Representative Name Role Phone Pcp, No Primary Care Provider [phone] Allergies No known active allergies Medications amitriptyline (ELAVIL) 25 MG tablet amitriptyline 25 mg tablet Take 1 tablet every day by oral route for 30 days. Active amitriptyline (ELAVIL) 25 MG tablet TAKE 1 TABLET BY MOUTH EVERY DAY FOR 30 DAYS 04/17/20 22 Active amitriptyline (ELAVIL) 10 MG tablet TAKE 1 TABLET BY MOUTH EVERY EVENING 04/20/20 22 Active cholecalcifero l, vitamin D3, 1,250 mcg (50,000 unit) capsule cholecalciferol (vitamin D3) 1,250 mcg (50,000 unit) capsule Active FLUoxetine (PROzac) 40 MG capsule fluoxetine 40 mg capsule TAKE 1 CAPSULE BY MOUTH EVERY DAY Active FLUoxetine (PROzac) 40 MG capsule TAKE 1 CAPSULE BY MOUTH EVERY DAY 04/21/20 22 Active lorazepam (ATIVAN) 0.5 MG tablet lorazepam 0.5 mg tablet TAKE 1 TABLET BY MOUTH EVERY DAY NEEDED Active SUMAtriptan (IMITREX) 25 MG tablet sumatriptan 25 mg tablet TAKE 1 TABLET BY MOUTH EVERY DAY NEEDED Active SUMAtriptan (IMITREX) 25 MG tablet TAKE 1 TABLET BY MOUTH EVERY DAY NEEDED 04/27/20 22 Active Social History Tobacco Use Types Packs/Day Years Used Date Smoking Tobacco: Never Assessed Comments Unknown Sex and Gender Information Value Date Recorded Sex Assigned at Not on file Legal Sex Female 7:00 PM EST Gender Identity Not on file Sexual Orientation Not on file Plan of Treatment Not on file Medical Devices Not on file Insurance [employer] Care Teams Front Office Representative Relationship Specialty Start Date End Date Pcp, No PCP - General Family Medicine 06/18/22
--- OUTSIDE RECORDS SUMMARY | 2025-05-02 15:40 | XMS_ITS | Clinical Summary ---
Author Organization [facility] it[facility] Address [address] [place] [address] Care Team Providers Care Lay Out Inspector Name Role Phone Unavailable Primary Care Provider Unavailabl e Social History Tobacco Use Types Packs/Day Years Used Date Smoking Tobacco: Never Assessed Comments Unknown Sex and Gender Information Value Date Recorded Sex Assigned at Not on file Legal Sex Female 1:29 AM EST Gender Identity Not on file Sexual Orientation Not on file Plan of Treatment Health Maintenance Due Date Last Done Comments Hepatitis B Vaccines (1 of 3 - 19+ 3-dose series) 2013 Cervical Cancer Screening: P ap Smear 12/09/2015 HPV Vaccines (1 - 3-dose SCD M series) 2021 Depression Screening 06/21/2024 COVID-19 Vaccine (1 - 2023-2 5 season) 2025 Influenza Vaccine (#1) 2025 03/28/2019 DTaP,Tdap,and Td Vaccines (2 - Td or Tdap) 03/21/2029 03/21/2019 RSV Immunization Adult Patie nts (1 - 1-dose 75+ series) 2069 HIB Vaccines Aged Out No longer eligi ble based on patient's age to complete this topic Hepatitis A Vaccines Aged Out No long er eligible based on patient's age to complete this topic IPV Vaccines Aged Out No longer eligi ble based on patient's age to complete this topic MMR Vaccines Aged Out No longer eligi ble based on patient's age to complete this topic Meningococcal ACWY Vaccine Aged Out N o longer eligible based on patient's age to complete this topic Meningococcal B Vaccine Aged Out No l onger eligible based on patient's age to complete this topic Pneumococcal Vaccine: Pediat rics (0 to 5 Years) and At-Risk Patients (6 to 49 Years) Aged Out No longer eligi ble based on patient's age to complete this topic RSV Immunization Patients Un margo 20 months Aged Out No longer eligible b ased on patient's age to complete this topic Varicella Vaccines Aged Out No longer eligible based on patient's age to complete this topic
== END 2025-05-02 13:31 | disposition home or self-care (01) ==
LOC: HO.HWS 13:00
PROVIDERS: PCP Nurse Practitioner; Visit Provider Advanced Practice Midwife
DX: Z01.419 Encounter for gynecological examination (general) (routine) without abnormal findings (principal)
CPT/HCPCS: 99395; 99459

== ENCOUNTER 2025-05-02 12:59 | Outpatient (REF) | payer BC, SELFPAY | END 2025-05-02 13:00 | disposition home or self-care (01) | LOC: HO.LNP 12:59 | PROVIDERS: PCP Nurse Practitioner; Visit Provider Advanced Practice Midwife | DX: Z01.419 Encounter for gynecological examination (general) (routine) without abnormal findings (principal) | CPT/HCPCS: 87626; 88175 ==